=== PATIENT | female | born 1970 | race Caucasian/White ===

== ENCOUNTER 2018-09-11 07:12 | Emergency (ER) | payer BC ==
[2018-09-11] MEDS ORDERED: KETOROLAC 30 MG/ML INJ ONE (07:51)
[2018-09-11 08:07] LABS: Urine Blood 2+ (NEG); Urine Glucose NEGATIVE (NEG); Urine Protein NEGATIVE (NEG)
--- NOTE | 2018-09-11 08:12 | RAD REPORT ---
EXAM DESCRIPTION: CT - Stone Protocol - 09/11/2018 7:55 am CLINICAL HISTORY: Abdominal pain. Lower abdominal pain. Urinary frequency COMPARISON: 2017 TECHNIQUE: Computed axial tomography of the abdomen pelvis was obtained without oral or IV contrast. Lack of IV and oral contrast limits evaluation of solid organs, bowel, and vessels. Coronal reformat jaya images were obtained and reviewed. All CT scans are performed using dose optimization technique as appropriate and may include automated exposure control or mA/KV adjustment according to patient size. FINDINGS: A renal calculus is not seen. An ureteral calculus is not noted. A bladder calculus is not present. The liver, spleen, pancreas and adrenals appear grossly normal There is no evidence of diverticulitis. The appendix appears normal Cholecystectomy. Hysterectomy IMPRESSION: Negative for a genitourinary calculus
--- NOTE | 2018-09-11 08:33 | EDPHYS ---
Physician Documentation [facility] Name: Edwina Paula Age: 48 yrs Sex: Female : 1970 Arrival Date: 09/11/2018 Time: 07:14 Bed 7 Private MD: ED Physician Bon Russell HPI: 09/11 08:26 This 48 yrs old Female presents to ER via Ambulatory with complaints of Back kb Pain. 08:26 The patient presents with pain that is acute, with no known mechanism of injury. The kb symptoms are located in the low back. Onset: The symptoms/episode began/occurred 1 week(s) ago. The pain radiates to the right lower quadrant and groin. Associated signs and symptoms: The patient has no apparent associated signs or symptoms. The problem was sustained without known cause. Modifying factors: The patient symptoms are alleviated by nothing, the patient symptoms are aggravated by any movement. Severity of symptoms: At their worst the symptoms were moderate, in the emergency department the symptoms are unchanged. The patient has not experienced similar symptoms in the past. The patient has been recently seen by a physician: the patient's primary care provider, 4 day(s) ago, with similar presenting complaints, was given a prescription for pain medications. Pt reports she was walking, picked her leg up and started having right low back pain one week ago. Went to PCP on Thursday and was given a steroid shot and toradol shot, sent home with muscle relaxers and 800mg ibuprofen. States pain has not gotten any better. pain worse with sitting, laying. Pain radiates to right groin. Denies urinary symptoms. Offered pain medication, but pt concerned about having a reaction to the medication so requests toradol. . 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 - Ebola Screening: : No symptoms or risks identified at this time. - Social history:: Smoking status: Patient/guardian denies using tobacco. ROS: 08:26 Constitutional: Negative for fever, chills, and weight loss, Cardiovascular: Negative kb for chest pain, palpitations, and edema, Respiratory: Negative for shortness of breath, cough, wheezing, and pleuritic chest pain, Abdomen/GI: Negative for abdominal pain, nausea, vomiting, diarrhea, and constipation, : Negative for injury, bleeding, discharge, and swelling, MS/Extremity: Negative for injury and deformity, Skin: Negative for injury, rash, and discoloration, Neuro: Negative for headache, weakness, numbness, tingling, and seizure. 08:26 Back: Positive for pain at rest, pain with movement, of the right low back. Exam: 08:26 Constitutional: This is a well developed, well nourished patient who is awake, alert, kb and in no acute distress. Head/Face: Normocephalic, atraumatic. Neck: Trachea midline, no thyromegaly or masses palpated, and no cervical lymphadenopathy. Supple, full range of motion without nuchal rigidity, or vertebral point tenderness. No Meningismus. Chest/axilla: Normal chest wall appearance and motion. Nontender with no deformity. No lesions are appreciated. Cardiovascular: Regular rate and rhythm with a normal S1 and S2. No gallops, murmurs, or rubs. Normal PMI, no JVD. No pulse deficits. Respiratory: Lungs have equal breath sounds bilaterally, clear to auscultation and percussion. No rales, rhonchi or wheezes noted. No increased work of breathing, no retractions or nasal flaring. Abdomen/GI: Soft, non-tender, with normal bowel sounds. No distension or tympany. No guarding or rebound. No evidence of tenderness throughout. Skin: Warm, dry with normal turgor. Normal color with no rashes, no lesions, and no evidence of cellulitis. MS/ Extremity: Pulses equal, no cyanosis. Neurovascular intact. Full, normal range of motion. Neuro: Awake and alert, GCS 15, oriented to person, place, time, and situation. Cranial nerves II-XII grossly intact. Motor strength 5/5 in all extremities. Sensory grossly intact. Cerebellar exam normal. Normal gait. 08:26 Back: pain, that is moderate, of the right low back, ROM is painful, normal spinal alignment noted. Vital Signs: 07:18 BP 138 / 96; Pulse 82; Resp 16 S; Temp 98.2(O); Pulse Ox 97% on R/A; aa5 08:32 BP 136 / 91; Pulse 78; Resp 20; Temp 97.9(TE); Pulse Ox 98% on R/A; ph 08:41 Pain 7/10; ph MDM: 07:19 Patient medically screened. kb 08:25 Data reviewed: vital signs, nurses notes. Data interpreted: Pulse oximetry: on room air kb is 97 %. Interpretation: normal. Counseling: I had a detailed discussion with the patient and/or guardian regarding: the historical points, exam findings, and any diagnostic results supporting the discharge/admit diagnosis, lab results, radiology results, the need for outpatient follow up, a family practitioner, to return to the emergency department if symptoms worsen or persist or if there are any questions or concerns that arise at home. 08:30 ED course: Family requests a "nerve pain" medication to try. Pt has norco at home from kb previous surgery, but has not tried taking it. Educated to take pain medication as needed to alleviate symptoms. Will prescribe gabapentin and prednisone for symptoms. Pt to follow up with PCP for possible MRI. . 09/11 08:02 Order name: Urine Dipstick--Ancillary (enter results); Complete Time: 08:08 ms 09/11 07:31 Order name: CT Stone Protocol; Complete Time: 08:17 kb 09/11 07:31 Order name: Urine Dipstick-Ancillary (obtain specimen); Complete Time: 07:55 kb Administered Medications: 07:45 Drug: TORadol 60 mg Route: IM; Site: right vastus lateralis; ph 08:41 Follow up: Pain 7/10 Adult; Response: No adverse reaction; Pain is decreased ph Disposition: 22:02 Co-signature as Attending Physician, Bon Russell MD Available for consultation at ps1 all times. . Disposition: 09/11/18 08:32 Discharged to Home. Impression: Low back pain. - Condition is Stable. - Discharge Instructions: Musculoskeletal Pain, Back Pain, Adult, [id number], Back Exercises, Moeo-ut-Iroy. - Prescriptions for Neurontin 300 mg Oral Capsule - take 1 capsule by ORAL route 1-2 times daily As needed; 20 capsule. Prednisone 20 mg Oral Tablet - take 1 tablet by ORAL route once daily for 5 days; 5 tablet. - Medication Reconciliation Form, Thank You Letter, Antibiotic Education, Prescription Opioid Use form. - Follow up: Emergency Department; When: As needed; Reason: Worsening of condition. Follow up: Private Physician; When: 2 - 3 days; Reason: Recheck today's complaints, Continuance of care, Re-evaluation by your physician. Signatures: Dispatcher [employer] EDNV Ezio Molly, SWATCHER-C SWATCHER-Charissa Escobar, RN RN aa5 Laura Parada RN RN Bon Russell MD MD ps1 Corrections: (The following items were deleted from the chart) 08:43 08:32 09/11/2018 08:32 Discharged to Home. Impression: Low back pain. Condition is ph Stable. Forms are Medication Reconciliation Form, Thank You Letter, Antibiotic Education, Prescription Opioid Use. Follow up: Emergency Department; When: As needed; Reason: Worsening of condition. Follow up: Private Physician; When: 2 - 3 days; Reason: Recheck today's complaints, Continuance of care, Re-evaluation by your physician. kb
--- NOTE | 2018-09-11 08:33 | ER ---
Nurse's Notes [facility] Name: Edwina Paula Age: 48 yrs Sex: Female : 1970 Arrival Date: 09/11/2018 Time: 07:14 Bed 7 Private MD: Diagnosis: Low back pain Presentation: 09/11 07:14 Presenting complaint: Patient states: lower back pain radiating to right hip and right aa5 groin that began approximately 1 week ago. Pt states "on Thursday I bent over and I made the pain worse". Pt reports having back x-ray done on . Pt states "I've done steroid shots, gone to the chiropractor, and I am taking medicine including muscle relaxants". 07:14 Transition of care: patient was not received from another setting of care. Onset of aa5 symptoms was August 2018. Care prior to arrival: None. 07:14 Acuity: VON 3 aa5 07:14 Method Of Arrival: Ambulatory aa5 07:40 Risk Assessment: Do you want to hurt yourself or someone else? Patient reports no ph desire to harm self or others. Initial Sepsis Screen: Does the patient meet any 2 criteria? No. Patient's initial sepsis screen is negative. Does the patient have a suspected source of infection? No. Patient's initial sepsis screen is negative. 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 - Ebola Screening: : No symptoms or risks identified at this time. - Social history:: Smoking status: Patient/guardian denies using tobacco. Screenin:30 Abuse screen: Denies threats or abuse. Denies injuries from another. Nutritional ph screening: No deficits noted. Tuberculosis screening: No symptoms or risk factors identified. Fall Risk None identified. Assessment: 07:40 General: Appears in no apparent distress. uncomfortable, well groomed, Behavior is ph calm, cooperative, appropriate for age, Denies fever, feeling ill. Pain: Complains of pain in right low back Pain radiates to right femoral area and right hip. Neuro: Level of Consciousness is awake, alert, obeys commands, Oriented to person, place, time, situation. Cardiovascular: Capillary refill < 3 seconds in bilateral fingers Patient's skin is warm and dry. Respiratory: Airway is patent Respiratory effort is even, unlabored, Respiratory pattern is regular, symmetrical. GI: No signs and/or symptoms were reported involving the gastrointestinal system. Patient currently denies abdominal pain, nausea, vomiting. : Reports pain in right lower quadrant(s) Denies burning with urination, urinary frequency. Derm: Skin is intact, is healthy with good turgor, Skin is pink, warm \\T\\ dry. Musculoskeletal: Circulation, motion, and sensation intact. Range of motion: intact in all extremities. 08:41 Reassessment: Patient appears in no apparent distress at this time. Patient and/or ph family updated on plan of care and expected duration. Pain level reassessed. Patient is alert, oriented x 3, equal unlabored respirations, skin warm/dry/pink. Pt reports that pain has slightly improved after IM medication, d/c home w/ prescriptions for pain medication and steroids, instructed to follow up w/ PCP. Vital Signs: 07:18 BP 138 / 96; Pulse 82; Resp 16 S; Temp 98.2(O); Pulse Ox 97% on R/A; aa5 08:32 BP 136 / 91; Pulse 78; Resp 20; Temp 97.9(TE); Pulse Ox 98% on R/A; ph 08:41 Pain 7/10; ph ED Course: 07:14 Patient arrived in ED. aa5 07:14 Arm band placed on Patient placed in an exam room. aa5 07:18 Molly Holguin FNP-C is PHCP. kb 07:18 Bon Russell MD is Attending Physician. kb 07:26 Triage completed. aa5 07:32 Laura Parada, REGAN is Primary Nurse. ph 07:54 CT Stone Protocol In Process Unspecified. EDMS 07:54 CT completed. Patient tolerated procedure well. Patient moved back from CT. bq 08:31 Patient has correct armband on for positive identification. Placed in gown. Bed in low ph position. Call light in reach. Side rails up X 1. Pulse ox on. NIBP on. 08:33 No provider procedures requiring assistance completed. Patient did not have IV access ph during this emergency room visit. Administered Medications: 07:45 Drug: TORadol 60 mg Route: IM; Site: right vastus lateralis; ph 08:41 Follow up: Pain / Adult; Response: No adverse reaction; Pain is decreased ph Outcome: 08:32 Discharge ordered by MD. bourgeois 08:42 Discharged to home ambulatory, with family. ph 08:42 Condition: good 08:42 Discharge instructions given to patient, Instructed on discharge instructions, follow up and referral plans. medication usage, Demonstrated understanding of instructions, follow-up care, medications, Prescriptions given X 2. 08:43 Patient left the ED. ph Signatures: Dispatcher [employer] EDMS Molly Holguin, PAULINA-C MASTER IN CHANCERY-Penny Ferguson Audri, RN RN aa5 Laura Parada RN RN ph Corrections: (The following items were deleted from the chart) 07:24 07:14 Arm band placed on Patient placed in an exam room, on a stretcher, ole handy
[2018-09-11 09:07] VITALS: BP 136/91; TEMP 97.9; O2SAT 98
== END 2018-09-11 08:43 | disposition home or self-care (01) ==
LOC: ER 07:12
DX: M54.5 Low back pain (principal); I10 Essential (primary) hypertension
CPT/HCPCS: 74176; 76377; 81003; 96372; 99284